=== PATIENT | male | born 1945 | race Caucasian/White ===

== ENCOUNTER 2016-08-30 06:02 | Outpatient (CLI) | payer MEDICARE, OTHER ==
[~2016-08-30] VITALS: Ht 172.7 cm; Wt 75.0 kg
--- NOTE | ~2016-08-30 | HEMODYNAMI ---
PATIENT:LAZARO BUTT MEDICAL RECORD: [id number] : 49 LOCATION:[facility] ADMISSION DATE: 08/30/16 Generatedon:08/30/20168:41 Patient name: LAZARO BUTT Patient #: [id number] SSN: D OB: 1945 Date of study: 08/30/2016 Page: Of Hemodynamic Procedure Report Patient Data Patient Demographics Procedure consent was obtained First Name: LAZARO Gender: Male Last Name: DAQUAN : 1945 Middle Initial: W Age: 70 year(s) Patient #: [id number] Race: Unknown Additional ID: [id number] Contact details [address]: [address] [place] [address] State: [place] City: [place] Zip code: [address] Past Medical History Allergies Allergen Reaction Date Comments Reported Other allergy 08/09/2015 Tetanus, Benadryl Codeine 08/09/2015 Penicillins 08/09/2015 Other allergy 08/30/2016 PCN, Tetanus, Benadryl, Codeine Admission Admission Data Admission Date: 08/30/2016 Admission Time: 6:02 Admit Source: Other Procedure Procedure Types Cath Procedure Diagnostic Procedure LHC LHC w/Coronaries w/Grafts PCI Procedure PTCA Initial Procedure Description Procedure Date Procedure Date: 08/30/2016 Procedure Start Time: 8:16 Procedure End Time: 8:37 Procedure Staff Name Function Adithya Nguyen MD Performing Physician Naila Sethi RN Nurse Juliano Clemens RT Monitor Caty Zazueta RT Scrub Reyes Jaramillo RT Monitor Procedure Data Cath Procedure Fluoroscopy Diagnostic fluoroscopy Total fluoroscopy Time: 4.7 time: 4.7 min min Diagnostic fluoroscopy Total fluoroscopy dose: 767 dose: 767 mGy mGy Contrast Material Contrast Material Type Amount (ml) Isovue 300 98 Entry Location Entry Primary Successful Side Size Upsize Upsize Entry Closure Succes sful Closure Location (Fr) 1 (Fr) 2 (Fr) Remarks Device Remarks Femoral Right 5 Fr 6 Fr Exoseal artery Short Diagnostic catheters Device Type Used For End Catheter Placement Cordis Infinity 5Fr JL Left Coronary 4.0 catheter Angiography Cordis Infinity 5Fr AR SVG Angiography MOD Catheter Cordis Infinity 5Fr LV Angiography Pigtail catheter Procedure Complications No complications Procedure Medications Medication Administration Route Dosage Oxygen NC 2 l/min Heparin Flush Bag added to field 2 bags (1000units/500ml NS) Lidocaine 2% added to field 20 Versed I.V. 1 mg Fentanyl I.V. 50 mcg Fentanyl I.V. 50 mcg Versed I.V. 1 mg Heparin Bolus I.V. 7500 units Plavix P.O. 600 mg Hemodynamics Rest Heart Rate: 52 (bpm) Pressure Samples Time Site Value (mmHg) Purpose Heart Use Rate(bpm) 8:24 LV 139/-4,16 EDP 69 Gradients Valve Time Site Site Mean SEP/DFP Peak To Heart Use 1 2 (mmHg) (sec/min) Peak Rate (mmHg) (bpm) Aortic 8:24 LV AO 69 Snapshots Pre Cath Intra NCS Post Cath Vital Signs Time Heart Resp SPO2 NIBP (mmHg) Rhythm Pain Sedation Rate (ipm) (%) Status Level (bpm) 8:00:59 51 16 100 146/77(119) SB 0 (11) 10(A) , No pain 8:05:15 52 16 98 149/80(123) SB 0 (11) 10(A) , No pain 8:09:35 56 16 96 136/71(114) SB 0 (11) 10(A) , No pain 8:13:49 55 15 96 126/74(105) SB 0 (11) 9(A) , No pain 8:18:01 51 19 97 127/68(103) SB 0 (11) 9(A) , No pain 8:22:06 68 16 96 146/87(128) NSR 0 (11) 9(A) , No pain 8:26:23 68 16 97 143/78(123) NSR 0 (11) 9(A) , No pain 8:30:38 68 16 97 122/74(102) NSR 0 (11) 9(A) , No pain 8:34:46 72 16 97 131/78(109) NSR 0 (11) 9(A) , No pain 8:36:04 73 16 97 127/78(104) NSR 0 (11) 10(A) , No pain Medications Time Medication Route Dose Verified Delivered Reason Notes Effectiveness by by 7:59:51 Oxygen NC 2 Adithya Naila Per physician l/min Michael Sethi RN 7:59:58 Heparin Flush added 2 Adithya Adithya used for Bag to bags Michael Nguyen MD procedure (1000units/500ml field NS) 8:00:05 Lidocaine 2% added 20ml Adithya Adithya used for to vial Michael Nguyen MD procedure field 8:09:25 Fentanyl I.V. 50 Adithya Naila for sedation mcg Michael Sethi RN 8:09:35 Versed I.V. 1 mg Adithya Naila for sedation Michael Sethi RN 8:13:14 Fentanyl I.V. 50 Adithya Naila for sedation mcg Michael Sethi RN 8:13:18 Versed I.V. 1 mg Adithya Naila for sedation Michael Sethi RN 8:28:42 Heparin Bolus I.V. 7500 Adithya Naila for dose units Michael Sethi RN anticoagulation verified with dr nguyen 8:36:21 Plavix P.O. 600 Adithya Naila for mg Michael Sethi RN antiplatelet therapy Procedure Log Time Note 7:30:02 Juliano Clemens RT(R) sent for patient. Start room use. 7:43:15 Admit Source: Other 7:44:00 Diagnostic Cath status Elective 7:44:03 Time tracking: Regular hours 7:44:07 Plan of Care:Hemodynamics will remain stable., Cardiac rhythm will remain stable., Comfort level will be maintained., Respiratory function will remain adequate., Patient/ family verbilizes understanding of procedure., Procedure tolerated without complication., Recovers from procedure without complications.. 7:54:46 Patient received from Outpatients to CCL 1 Alert and oriented. Tansferred to table in Supine position. 7:54:47 Warm blankets applied, and lauro hugger turned on for patient comfort. 7:54:47 Correct patient and procedure confirmed by team. 7:54:49 Signed procedure consent form obtained from patient. 7:54:50 ECG and BP/O2 sat monitors applied to patient. 7:59:42 Vital chart was started 7:59:51 Oxygen 2 l/min NC was given by Naial Jossie RN; Per physician; 7:59:58 Heparin Flush Bag (1000units/500ml NS) 2 bags added to field was given by Adithya Nguyen MD; used for procedure; 8:00:05 Lidocaine 2% 20ml vial added to field was given by Adithya Nguyen MD; used for procedure; 8:05:54 Baseline sample Acquired. 8:05:57 Rhythm: sinus bradycardia 8:06:06 Full Disclosure recording started 8:07:11 H&P Date Dictated: 08/30/2016 New H&P dictated by physician.. 8:07:14 Pre-procedure instructions explained to patient. 8:07:14 Pre-op teaching completed and patient verbalized understanding. 8:07:15 Family in waiting room. 8:07:17 Patient NPO since Midnight. 8:07:55 Patient allergic to Other allergy PCN, Tetanus, Benadryl, Codeine 8:08:03 Is the patient allergic to Iodine/contrast media? No. 8:08:09 Is patient on blood thinner?No 8:08:12 ACC The patient was administered the following blood thiners within the last 24 hours: None 8:08:31 Patient diabetic? Yes. 8:08:33 If diabetic: On Metformin? No 8:08:36 Previous problem with sedation/anesthesia? No ? 8:08:37 Snore? Yes 8:08:38 Sleep apnea? No 8:08:39 Deviated septum? No 8:08:39 Opens mouth fully? Yes 8:08:40 Sticks out tongue? Yes 8:08:42 Airway obstruction? No ? 8:08:45 Dentures? Yes IN 8:08:51 Pre procedure: right dorsailis pedis pulse 1+ Palpable, but thready & weak; easily obliterated 8:08:55 Patient pain scale 0/10 ?. 8:08:59 IV patent on arrival in left forearm with 0.9% NaCl at [facility]. 8:09:02 Lab results completed and on chart. 8:09:09 Right groin area was prepped with chlora-prep and draped in sterile fashion 8:09:10 Alarms reviewed by RNicole N. 8:09:10 Sharps counted by scrub and verified by R.N. 8:09:13 --------ALL STOP TIME OUT------ 8:09:13 Final Timeout: patient, procedure, and site verified with staff and physician. All members of the team are in agreement. 8:09:15 Right groin site verified by team. 8::18 Physical assessment completed. ASA score P 2 - A patient with mild systemic disease as per Adtihya Nguyen MD. 8::22 Sedation plan: IV Moderate Sedation Versed, Fentanyl 8:09:25 Fentanyl 50 mcg I.V. was given by Naila Sethi RN; for sedation; 8:09:35 Versed 1 mg I.V. was given by Naila Sethi RN; for sedation; 8:09:56 Tegaderm 4 x 4 opened to sterile field. 8:09:57 Acist Manifold opened to sterile field. 8:09:58 Acist Hand Control opened to sterile field. 8:10:00 Acist Syringe opened to sterile field. 8:10:00 Bag Decanter opened to sterile field. 8:10:01 Cardinal Cath Pack opened to sterile field. 8:10:01 Terumo 5Fr [place] Sheath opened to sterile field. 8:10:02 St Tereso 260cm J .035 wire opened to sterile field. 8:13:14 Fentanyl 50 mcg I.V. was given by Naila Sethi RN; for sedation; 8:13:18 Versed 1 mg I.V. was given by Naila Sethi RN; for sedation; 8:13:56 Zero performed for pressure channel P1 8:14:33 ACC Patient presents with Stable Angina CCS Anginal Class 2--Slight limitation of ordinary activity. 8:16:02 Procedure started. 8:16:11 Local anesthetic to right femoral artery with Lidocaine 2% by Adithya Nguyen MD.INITIAL ACCESS ONLY 8:16:18 A 5 Fr sheath was inserted into the Right Femoral artery 8:17:58 A Cordis Infinity 5Fr JL 4.0 catheter was advanced over the wire and used for Left Coronary Angiography. 8:18:07 LCA angiography performed. 8:19:17 Catheter removed. 8:19:45 A Cordis Infinity 5Fr AR MOD Catheter was advanced over the wire and used for SVG Angiography. 8:20:22 SVG to RCA angiography performed. 8:22:18 SVG to LAD angiography performed. 8:23:51 A Cordis Infinity 5Fr Pigtail catheter was advanced over the wire and used for LV Angiography. 8:24:04 LV gram done using CARBAJAL 8:24:06 LV hemodynamics recorded. 8:24:10 Injector settings: Ml/sec: 5, Volume: 15, 8:24:17 EF : 50 % 8:24:30 Catheter removed. 8:25:55 Merit BasixCompak Inflation Kit opened to sterile field. 8:25:56 High Pressure Extension Tubing (Michael) opened to sterile field. 8:26:03 Cordis 6FR XBLAD 3.5 guide catheter opened to sterile field. 8:26:03 Bah BMW [place] 2 J-tip 300cm 0.014 guide wir opened to sterile field. 8:26:09 Solyndraumo 6Fr [place] Sheath opened to sterile field. 8:26:25 Sheath upsized to a 6 Fr Short. 8:26:45 ACC PCI Site: [facility] has 80% stenosis. 8:26:47 ACC Pre-intervention ALFONZO Flow is 3. 8:26:54 6 Fr XBLAD 3.5 guide catheter was inserted over the wire 8:27:16 BMW 2 wire advanced. 8:28:42 Heparin Bolus 7500 units I.V. was given by Naila Sethi RN; for anticoagulation; dose verified with dr nguyen 8:31:21 Inflation number: 1 A [place] Sci Charles Mix 2.5 X 15 balloon was prepped and advanced across the Mid CX, then inflated to 14 ORION for 0:12 (min:sec). 8:31:51 Inflation number: 2 The [place] Sci Charles Mix 2.5 X 15 balloon was reinflated across the Mid CX, to 14 ORION for 0:11 (min:sec). 8:32:25 Inflation number: 3 The [place] Sci Charles Mix 2.5 X 15 balloon was reinflated across the Mid CX, to 14 ORION for 0:19 (min:sec). 8:33:29 Balloon removed over the wire. 8:33:30 Wire removed. 8:33:30 Guide catheter removed. 8:33:54 Contrast amount:Isovue 300 98ml. 8:34:10 Cordis 6Fr Exoseal opened to sterile field. 8:34:44 Sheath removed intact; hemostasis achieved with Exoseal to the Right Femoral artery. 8:34:46 Procedure ended.(Physican Out) 8:34:54 Fluoroscopy time 04.70 minutes. 8:34:57 Flurop Dose total: 767 8:34:57 Fluoroscopy dose: 767 mGy 8:34:59 Sharps counted by scrub and verified by R.N. 8:34:59 Insertion/operative site no bleeding no hematoma. 8:35:02 Post-op/insertion site Right Femoral artery dressed using a 4 x 4 and Tegaderm. 8:35:16 Procedure type changed to Cath procedure, Diagnostic procedure, LHC, LHC w/Coronaries w/Grafts, PCI procedure, PTCA Initial 8:35:46 Post right femoral artery:stable 8:35:47 Post Procedure Pulses reassessed and unchanged 8:35:50 Post procedure rhythm: sinus rhythm 8:35:52 Post procedure instruction explained to patient.Patient verbalizes understanding. 8:36:21 Plavix 600 mg P.O. was given by Naila Sethi RN; for antiplatelet therapy; 8:36:57 Procedure and supply charges have been captured, reviewed, submitted and are correct. 8:37:00 Procedure Complication : No complications 8:37:33 Vital chart was stopped 8:37:34 See physician's report for complete and final results. 8:37:36 Report given to Post Procedure Room. 8:37:40 Patient transfered to Post Procedure Room with Stretcher. 8:37:42 Procedure ended. 8:37:42 Full Disclosure recording stopped 8:37:57 ACC-PCI Only Patient was given prescriptions, or instructed by Adithya Nguyen MD to start/continue the following medications upon discharge: Plavix 8:37:58 End room use (Document Last) Intervention Summary Intervention Notes Time ActionType Lesion and Equipment Action# Pressure Duration Attributes Used 8:31:21 Inflate Mid CX [place] 1 14 00:12 balloon Sci Charles Mix 2.5 X 15 balloon 8:31:51 Reinflate Mid CX [place] 2 14 00:11 balloon Sci [place] Mix 2.5 X 15 balloon 8:32:25 Reinflate Mid CX [place] 3 14 00:19 balloon Sci [place] Mix 2.5 X 15 balloon Device Usage Item Name Manufacture Quantity Catalog Number Hospital Part Current Mini mal Lot# / Charge Number Stock Stock Serial# Code Tegaderm 4 3M 1 1626 [id number] [id number] 480916 5 x 4 Acist Acist 1 90303 004774 990372 375208 5 Manifold Medical Systems Inc Acist Hand Acist 1 95621 780949 417965 929990 5 Control Medical Systems Inc Acist Acist 1 00121 591489 174295 294400 20 Syringe Medical Systems Inc Bag Microtek 1 2002S 990652 17599 351325 5 Decanter Medical Inc. Cardinal Cardinal [address] 420396 50016 815231 5 Cath Pack Health Terumo 5Fr Terumo 1 [id number] 694928 108737 175494 [address] St Tereso 1 732965 120822 883515 199151 30 260cm J .035 wire Cordis Cardinal 1 [id number] 193957 041134 957340 10 Bracket Computing 5Fr JL 4.0 catheter Cordis Cardinal 1 [id number] 616730 534498 727038 15 Bracket Computing 5Fr AR MOD Catheter Cordis Cardinal 1 [id number] 116406 730333 342324 5 Bracket Computing 5Fr Pigtail catheter Merit Merit 1 XV5536 039935 908626 036209 15 Next University Medical Inflation Kit High Merit 1 [id number] 871246 23816 052890 10 Pressure Medical Extension Tubing (Nguyen) Cordis 6FR Cardinal 1 36954604 524580 962014 775059 10 XBLAD 3.5 Health guide catheter Bah BMW Bah 1 [id number] 216268 473899 244837 5 [place] 2 Vascular J-tip 300cm 0.014 guide wir Terumo 6Fr Terumo 1 AOD301 789894 614607 093519 40 [place] Sheath [place] Sci [place] 1 [id number] 653395 645969 225132 1 [id number] Antidot 2.5 X 15 balloon Cordis 6Fr Cardinal 1 EX600 496310 699787 582135 10 [employer] Signature Audit [place] Stage Time Signature Unsigned Intra-Procedure 08/30/2016 Reyes Jaramillo 8:41:19 AM RT(R) Signatures Monitor : Juliano Clemens RT Signature : Date : Time : Monitor : Reyes Suit RT Signature : Date : Time : [address] [place] [address]
[~2016-08-30 06:02] MED LIST: ACTOS30 MG PO; ASPIRIN81 MG PO; COREG 3.1253.125 MG PO; DIABETA5 MG PO; DUONEB 2.5-0.5 M3 ML UPD; FLOMAX0.4 MG PO; HUMALOG 30100 UNITS/ SC; INSTA-GLUCOSE31 GM PO; JANUMET XR 1001 EACH PO; LAMISIL250 MG PO; LANTUS INSULIN10 ML SC; LEVEMIR100 U/M1; LISINOPRIL2.5 MG PO; LOPRESSOR25 MG PO; MEDROL DOSE PACK4 MG PO; MELATONIN 3 MG1 TAB PO; PLAVIX75 MG; PROAIR HFA8.5 GM INH; RESTORIL15 MG PO; TUDORZA PRESSAIR INH; ZOCOR40 MG PO; ZPAK PO
[2016-08-30 07:07] LABS: BASOPHILS 0.7 % (0.0-2.0); EOSINOPHILS 3.7 % (0-7); HEMATOCRIT 37.6 % (42.0-54.0); HEMOGLOBIN 12.4 g/dL (13.5-17.5); IMMATURE GRANULOCYTES 0.5 % (0-5); MCH 30.5 pg (26.0-34.0); MCV 92.4 fL (80.0-100.0); MEAN PLATELET VOLUME 10.1 fL (7.4-10.4); MONOCYTES 10.4 % (2-11); NEUTROPHILS 66.7 % (40-80); PLATELET COUNT 216 10x3/uL (130-400); RBC 4.07 10x6/uL (4.20-6.10); RDW 12.5 % (11.5-14.5); WBC 8.7 10x3/uL (4.8-10.8)
[2016-08-30 07:15] LABS: ANION GAP 9.6 mmol/L (8-16); CALCIUM 8.3 mg/dL (8.5-10.1); CARBON DIOXIDE 27.9 mmol/L (21.0-32.0); CREATININE - SERUM 1.1 mg/dL (0.6-1.3); POTASSIUM - SERUM 4.5 mmol/L (3.5-5.1)
[2016-08-30 07:39] VITALS: BP 124/70; Ht 172.7 cm; Wt 75.0 kg
--- NOTE | 2016-08-30 07:42 | NUR ---
0740-REPORTED PRE-PROCEDURE BLOOD SUGAR RESULTS TO RUBEN IN CURRICULUM ASSISTANT PRINCIPAL, STATES HE WILL INFORM DR. RIVAS & GABRIEL IN CURRICULUM ASSISTANT PRINCIPAL.
[2016-08-30] MEDS ORDERED: PLAVIX75 MG PO (08:57)
--- NOTE | 2016-08-30 09:08 | NUR ---
0900 LYING FLAT, RESTING WITH EYES CLOSED. NC 2L IN PLACE WHILE SLEEPING. SBRADY RATE 54 W NO C/O CHEST PAIN, PULSES PALP X 4. R GROIN 6F EXOSEAL C/D/I WITH NO HEMATOMA OR BLEEDING.
--- NOTE | 2016-08-30 09:31 | NUR ---
0930 CONTINUES TO SLEEP BUT AWAKENS TO VERBAL STIMULI. NC 2L IN PLACE. VITALS ALL WNL. R GROIN 6F EXOSEAL C/D/I WITH NO HEMATOMA OR BLEEDING.
--- NOTE | 2016-08-30 10:00 | NUR ---
1000 CONTINUES TO SLEEP, VITALS ALL WNL. R GROIN 6F EXOSEAL C/D/I WITH NO HEMATOMA OR BLEEDING. DAUGHTER AT BEDSIDE.
--- NOTE | 2016-08-30 10:40 | NUR ---
PATIENT C/O PAIN IN BACK OF LEFT SHOULDER RATED 4/10. NO EKG CHANGES. ROB NOTIFIED. T/O FOR NORCO 10/325 PO NOW FOR PAIN. NORCO 10/325MG PO GIVEN ORDERED. WILL MONITOR FOR EFFECTIVENESS.
--- NOTE | 2016-08-30 10:53 | NUR ---
VOIDED VIA URINAL 200CC
--- NOTE | 2016-08-30 11:53 | NUR ---
6 FR EXOSEAL R/GROIN CDI NO BLEEDING NO HEMATOMA NOTED VSS WITH CHEST PAIN DENIED WILL MONITOR
--- NOTE | 2016-08-30 12:44 | NUR ---
1230 ELEVATED HOB, EATING TURKEY TRAY. WILL MONITOR R GROIN FOR BLEEDING. VITALS ALL WNL.
--- NOTE | 2016-08-30 12:44 | NUR ---
1244 PIV REMOVED FROM LEFT FOREARM WITH BANDAID APPLIED. R GROIN REMAINS C/D/I WITH NO HEMATOMA OR BLEEDING.
--- NOTE | 2016-08-30 13:08 | NUR ---
ASSIST UP TO GET DRESSED FOR DISCHARGE WITH CHEST PAIN DENIED. 6 FR EXOSEAL R/GROIN CDI NO BLEEDING NO HEMATOMA NOTED. DISCHARGE INSTRUCTIONS GONE OVER VERBAL AND WRITTEN WITH PATIENT AND FAMILY ALL VERBALIZED UNDERSTANDING LEFT VIA WC TO [facility] FOR FAMILY TO TRANSPORT HOME
--- NOTE | 2016-09-03 15:45 | OP ---
PATIENT NAME: LAZARO BUTT MEDICAL RECORD: [id number] :49 LOCATION:D.CAT ADMISSION DATE: SURGEON: BLUE RIVAS M.D. DATE OF OPERATION: 08/30/2016 REFERRING PHYSICIAN: Pako Anderson MD PROCEDURES PERFORMED: 1. Selective coronary angiography. 2. Left heart catheterization with ventriculogram. 3. Bypass angiography. 4. PTCA of the circumflex artery. INDICATION: A 70-year-old gentleman presents with abnormal stress test revealing inferior lateral wall ischemia. EQUIPMENT USED: A 5-Stateless JL4, AR modified catheter, and pigtail catheter. INTERVENTION: A 6-Stateless XB 3.5 guide, BMW guide wire, 2.5 x 15 mm Licking balloon. TECHNIQUE: A 5-Stateless sheath was inserted in retrograde fashion in the right common femoral artery. Next, selective coronary angiography was performed using standard 5-Stateless JL4 and Mark right. Left heart catheterization performed using pigtail catheter. Bypass angiography was performed using the AR modified catheter. CORONARY ANATOMY: 1. Left main: Left main trunk is moderate in caliber. It gives rise to the LAD and circumflex. It is widely patent. 2. LAD: This vessel is 100% occluded in the proximal segment. 3. Circumflex: This vessel is large in caliber. It is the dominant vessel. The proximal vessel has been stented. There is the discrete 80% to 90% in-stent restenosis seen in the proximal aspect of the stent. 4. Right coronary: This vessel is 100% occluded just beyond the origin. 5. Saphenous vein graft to the PDA. This graft is widely patent throughout its course. It has been stented in the mid body. The stent is widely patent. There is no evidence of restenosis. 6. Saphenous vein graft to LAD. This graft demonstrates some mild irregularity in the proximal body of the graft, but nothing worse than 20%. Beyond the anastomosis, the vessel is of good caliber and has no obstruction. 7. Left ventricle: Left ventricle is normal in size. No wall motion abnormalities was seen. Estimated ejection fraction is lower limits of normal around 50%. DESCRIPTION OF INTERVENTION: A 6-Stateless sheath was inserted in retrograde fashion in the right common femoral artery. Next, 100 units per kilogram of heparin was infused. A 6-Stateless XB 3.5 guide was advanced and engaged in the left main coronary artery. Next, a BMW guide wire was placed in the distal circumflex. A 2.5 x 15 mm [place] balloon was advanced. There are several inflations were performed across the in-stent restenosis at 14 atmospheres. Injections revealed a less than 10% residual stenosis with brisk flow to the circumflex. At this point, the wire and guide were removed. IMPRESSION: Successful percutaneous transluminal coronary angioplasty of the OPERATIVE REPORT [id number] LAZARO BUTT circumflex for in-stent restenosis. TRANSINT:[id number] Voice Confirmation ID: [id number] DOCUMENT ID: [id number] BLUE RIVAS M.D. at 1545 CC: [id number] DICTATION DATE: 08/30/16 0843 BUS ANALYST: 08/30/16 0905 [facility] CLI 08/30/16 [address] [place] [address]
--- NOTE | 2016-09-03 15:45 | HP ---
PATIENT: LAZARO BUTT MEDICAL RECORD: [id number] ACCOUNT: [id number] LOCATION:SOM : 49 ADMISSION DATE: 08/30/16 HISTORY AND PHYSICAL EXAMINATION HISTORY OF PRESENT ILLNESS: Lazaro is a pleasant 70-year-old gentleman who has undergone bypass grafting in the past. He underwent stent of the circumflex about a year ago. He recently presented for Cardiolite stress test for surveillance, as this is 1 year from stenting. This revealed inferior and lateral wall ischemia. He was subsequently referred for cardiac catheterization. PAST MEDICAL HISTORY: 1. Coronary artery disease. 2. Hypertension. 3. Diabetes mellitus. 4. Hyperlipidemia. MEDICATIONS: Carvedilol 3.125 mg twice daily, Lipitor 40 mg daily, aspirin p.o. every day, Humalog insulin as directed, lisinopril 2.5 mg daily. HABITS: He does not smoke tobacco. FAMILY HISTORY: Noncontributory. PHYSICAL EXAMINATION: VITAL SIGNS: Blood pressure is 120/70, pulse is 68. NECK: No JVD or bruit. CHEST: Clear to auscultation bilaterally. No wheezes or rales. CARDIAC: Regular rate and rhythm. No S4, no S3, and no murmur. ABDOMEN: Soft and nontender. No masses and no bruits. EXTREMITIES: Pulses are 2+ bilaterally. No edema. IMPRESSION: Coronary artery disease. His Cardiolite stress test revealed inferior lateral wall ischemia. He underwent stent of circumflex, about a year ago. I suspect he may have developed restenosis. RECOMMENDATIONS: We will proceed with cardiac catheterization. TRANSINT:[id number] Voice Confirmation ID: [id number] DOCUMENT ID: [id number] BLUE RIVAS M.D. at 1545 CC: [id number] DICTATION DATE: 08/30/16 0844 SPAGHETTI PRESS HELPER: 08/30/16 0912 [facility] CLI 08/30/[address] [address]
== END 2016-08-30 13:20 | disposition home or self-care (01) ==
LOC: D.CATH 06:02
PROVIDERS: Internal Medicine Cardiovascular Disease
DX: I25.10 Atherosclerotic heart disease of native coronary artery without angina pectoris (principal); T82.855A Stenosis of coronary artery stent, initial encounter; Z95.1 Presence of aortocoronary bypass graft; I10 Essential (primary) hypertension; E11.9 Type 2 diabetes mellitus without complications; E78.5 Hyperlipidemia, unspecified; Z79.82 Long term (current) use of aspirin; Z79.4 Long term (current) use of insulin; Z79.899 Other long term (current) drug therapy

== ENCOUNTER → 2017-05-31 12:11 | Outpatient (CLI) | payer MEDICARE, OTHER ==
[2016-08-30 07:39] VITALS: BMI 25.1
[~2017-05-31 12:11] MED LIST changes: +PLAVIX75 MG PO
== END | disposition home or self-care (01) ==
LOC: D.MRI 12:11
DX: M54.12 Radiculopathy, cervical region (principal)

== ENCOUNTER 2017-08-11 09:51 | Emergency (ER) | payer MEDICARE, OTHER ==
[2016-08-30 07:39] VITALS: BMI 25.1
== END 2017-08-11 11:15 | disposition home or self-care (01) ==
LOC: D.ER 09:51
DX: S02.609A Fracture of mandible, unspecified, initial encounter for closed fracture (principal); W19.XXXA Unspecified fall, initial encounter; Y93.89 Activity, other specified; Y92.019 Unspecified place in single-family (private) house as the place of occurrence of the external cause; E11.9 Type 2 diabetes mellitus without complications; Z79.4 Long term (current) use of insulin

== ENCOUNTER → 2018-04-03 13:29 | Outpatient (CLI) | payer MEDICARE, OTHER ==
[2016-08-30 07:39] VITALS: BMI 25.1
[~2018-04-03 13:29] MED LIST changes: +BAYER CHEWABLE81 MG PO; +IPRAT-ALBUT 0.5-3 ML UPD; +VIBRAMYCIN 100100 MG PO
== END | disposition home or self-care (01) ==
LOC: D.CT 13:29
DX: R05 Cough (principal)

== ENCOUNTER 2018-04-03 19:16 | Emergency (ER) | payer MEDICARE, OTHER ==
[~2018-04-03] VITALS: Ht 172.7 cm; Wt 70.5 kg
[~2018-04-03 19:16] MED LIST changes: -BAYER CHEWABLE81 MG PO; -IPRAT-ALBUT 0.5-3 ML UPD; -VIBRAMYCIN 100100 MG PO
[2018-04-03 19:25] VITALS: Ht 172.7 cm; Wt 70.5 kg
[2018-04-03] MEDS ORDERED: BAYER CHEWABLE81 MG PO (19:26)
[2018-04-03 19:43] LABS: BASOPHILS 0.5 % (0-2); EOSINOPHILS 13.4 % (0-7); HEMATOCRIT 40.5 % (42.0-54.0); HEMOGLOBIN 13.7 g/dL (13.5-17.5); IMMATURE GRANULOCYTES 0.3 % (0-5); LYMPHOCYTES 8.7 % (15-50); MCH 30.8 pg (26.0-34.0); MCHC 33.8 g/dL (31.0-37.0); MONOCYTES 7.9 % (2-11); NEUTROPHILS 69.2 % (40-80); PLATELET COUNT 212 10x3/uL (130-400); RBC 4.45 10x6/uL (4.20-6.10); RDW 13.5 % (11.5-14.5); WBC 16.3 10x3/uL (4.8-10.8)
[2018-04-03 19:55] LABS: ALBUMIN 4.1 g/dL (3.4-5.0); ALKALINE PHOSPHATASE 104 U/L (46-116); ALT (SGPT) 60 U/L (10-68); BILIRUBIN - TOTAL 0.87 mg/dL (0.2-1.3); CALC OSMOLALITY 291 mosm/kg (275-300); CALCIUM 8.5 mg/dL (8.5-10.1); CARBON DIOXIDE 28.8 mmol/L (21.0-32.0); CHLORIDE - SERUM 103 mmol/L (98-107); CREATININE - SERUM 1.5 mg/dL (0.6-1.3); GLUCOSE 270 mg/dL (74-106); POTASSIUM - SERUM 4.9 mmol/L (3.5-5.1); PROTEIN - SERUM 6.9 g/dL (6.4-8.2); SODIUM 137 mmol/L (136-145); UREA NITROGEN 34 mg/dL (7-18); eGFR NON AFRICAN AMERICAN 49 mL/min (90-120)
[2018-04-03 20:06] LABS: CKMB 9.7 U/L (0.0-3.6); CREATINE KINASE 755 UL (21-232)
[2018-04-03 20:07] LABS: TROPONIN-I < 0.017 ng/mL (0.000-0.060)
[2018-04-03] MEDS ORDERED: IPRAT-ALBUT 0.5-3 ML UPD (23:02)
[2018-04-03] MEDS ORDERED: VIBRAMYCIN 100100 MG PO (23:02)
[2018-04-03 23:25] VITALS: BP 129/82
== END 2018-04-03 23:25 | disposition home or self-care (01) ==
LOC: D.ER 19:16
PROVIDERS: Family Medicine
DX: R06.00 Dyspnea, unspecified (principal); Z86.79 Personal history of other diseases of the circulatory system; R05 Cough; J45.909 Unspecified asthma, uncomplicated; E11.9 Type 2 diabetes mellitus without complications; R00.0 Tachycardia, unspecified; I45.10 Unspecified right bundle-branch block

== ENCOUNTER → 2018-11-05 07:49 | Outpatient (CLI) | payer MEDICARE, BC ==
[2018-04-03 19:25] VITALS: BMI 23.6
[~2018-11-05 07:49] MED LIST changes: +BAYER CHEWABLE81 MG PO; +IPRAT-ALBUT 0.5-3 ML UPD; +VIBRAMYCIN 100100 MG PO
== END | disposition home or self-care (01) ==
LOC: D.HCCARDIO 07:49
PROVIDERS: ATTEND Internal Medicine Cardiovascular Disease
DX: I25.810 Atherosclerosis of coronary artery bypass graft(s) without angina pectoris (principal)

== ENCOUNTER 2018-11-13 05:54 | Outpatient (CLI) | payer MEDICARE, BC ==
[~2018-11-13] VITALS: Ht 172.7 cm; Wt 70.5 kg
--- NOTE | ~2018-11-13 | HEMODYNAMI ---
PATIENT:LAZARO BUTT MEDICAL RECORD: [id number] : 49 LOCATION:[facility] ADMISSION DATE: 11/13/18 Generatedon:11/13/20188:19 Patient name: LAZARO BUTT Patient #: [id number] SSN: D OB: 1945 Date of study: 11/13/2018 Page: Of Hemodynamic Procedure Report Patient Data Patient Demographics Procedure consent was obtained First Name: LAZARO Gender: Male Last Name: DAQUAN : 1945 Middle Initial: W Age: 72 year(s) Patient #: [id number] Race: Unknown Additional ID: [id number] Contact details Address: [address] [place] [address] State: [place] City: [place] Zip code: [address] Past Medical History Allergies Allergen Reaction Date Comments Reported Other allergy 08/09/2015 Tetanus, Benadryl Codeine 08/09/2015 Penicillins 08/09/2015 Other allergy 08/30/2016 PCN, Tetanus, Benadryl, Codeine Other allergy 11/13/2018 BENADRYL, CODEINE, PCN, TETANUS VACCINES AND TOXOID Admission Admission Data Admission Date: 11/13/2018 Admission Time: 5:54 Lab Results Lab Result Date: 11/13/2018 Lab Result Time: 0:00 Biochemistry Name Units Result Min Max BUN mg/dl 24 --(----)-* 7 18 Creatinine mg/dl 1.1 --(--*-)-- 0.6 1.3 CBC Name Units Result Min Max Hematocrit % 41 -*(----)-- 42 54 Hemoglobin g/dl 13.8 --(*---)-- 13.5 17.5 Procedure Procedure Types Cath Procedure Diagnostic Procedure [facility] w/Coronaries w/Grafts PCI Procedure PTCA PTCA Initial Procedure Description Procedure Date Procedure Date: 11/13/2018 Procedure Start Time: 7:55 Procedure End Time: 8:15 Procedure Staff Name Function Adithya Rodriguez MD Performing Physician Lashanda Dickerson RT Scrub Stacy Matamoros RT Monitor Nory Veloz RN Nurse Kg Soria RN Genetic Supervisor Procedure Data Cath Procedure Fluoroscopy Diagnostic fluoroscopy Total fluoroscopy Time: 4 time: 4 min min Diagnostic fluoroscopy Total fluoroscopy dose: 600 dose: 600 mGy mGy Contrast Material Contrast Material Type Amount (ml) Isovue 300 97 Entry Location Entry Primary Successful Side Size Upsize Upsize Entry Closure Succes sful Closure Location (Fr) 1 (Fr) 2 (Fr) Remarks Device Remarks Femoral Right 5 Fr 6 Fr Exoseal artery Short Estimated blood loss: 10 ml Diagnostic catheters Device Type Used For End Catheter Placement MULTIPACK JL 4.0 5Fr Procedure catheter DIAGNOSTIC AR MOD 5Fr Procedure Catheter ([id number]) MULTIPACK Pigtail 5 Fr Procedure catheter Procedure Complications No complications Procedure Medications Medication Administration Route Dosage 0.9% NaCl I.V. 100 ml/hr Oxygen etCO2 Nasal cannula 2 l/min Lidocaine 2% added to field 20 Heparin Flush Bag added to field 2 bags (1000units/500ml NS) Versed I.V. 2 mg Fentanyl I.V. 50 mcg Versed I.V. 2 mg Fentanyl I.V. 50 mcg Heparin Bolus I.V. 7000 units Plavix P.O. 600 mg Hemodynamics Rest Heart Rate: 71 (bpm) Pressure Samples Time Site Value (mmHg) Purpose Heart Use Rate(bpm) 8:03 LV 133/-2,11 Snapshot 78 8:03 AO 126/57(87) Pullback 78 8:03 LV 119/1,10 Pullback 78 Gradients Valve Time Site 1 Site 2 Mean SEP/DFP Peak To Heart Use (mmHg) (sec/min) Peak Rate (mmHg) (bpm) Aortic 8:03 LV AO 0 9 0 78 119/1,10 126/57(87) Calculations Valve P-P Mean Valve Index Valve Source Name Gradient Area Flow (cm2) Aortic 0 0 0 0 Snapshots Pre Cath Intra NCS Post Cath Vital Signs Time Heart Resp SPO2 etCO2 NIBP (mmHg) Rhythm Pain Sedation Rate (ipm) (%) (mmHg) Status Level (bpm) 7:41:23 61 14 97 32.3 140/82(122) NSR 0 (11) 10(A) , No pain 7:45:45 63 13 97 31.5 143/81(104) NSR 0 (11) 10(A) , No pain 7:50:05 62 11 97 36 127/83(101) NSR 0 (11) 10(A) , No pain 7:54:23 64 12 96 21 132/76(111) NSR 0 (11) 10(A) , No pain 7:58:43 68 10 97 35.3 132/75(113) NSR 0 (11) 9(A) , No pain 8:02:59 76 10 97 33.8 138/79(109) NSR 0 (11) 9(A) , No pain 8:07:09 75 14 97 41.3 128/77(107) NSR 0 (11) 9(A) , No pain 8:11:23 81 16 98 37.5 133/76(109) NSR 0 (11) 10(A) , No pain 8:15:37 82 8 97 16.5 125/77(100) NSR 0 (11) 10(A) , No pain Medications Time Medication Route Dose Verified Delivered Reason Notes Effectiveness by by 7:44:42 0.9% NaCl I.V. 100 Adithya Nory used for ml/hr Michael Veloz integration engineer 7:44:48 Oxygen etCO2 2 Adithya Nory used for Nasal l/min Michael Veloz procedure cannula RN 7:44:53 Lidocaine 2% added 20ml Adithya Adithya for local to vial Michael Rodriguez MD anesthetic field 7:44:58 Heparin Flush added 2 Adithya Adithya used for Bag to bags Michael Rodriguez MD procedure (1000units/500ml field NS) 7:51:08 Fentanyl I.V. 50 Adithya Nory for sedation mcg Michael Veloz RN 7:51:57 Versed I.V. 2 mg Adithya Nory for sedation Michael Veloz RN 7:56:19 Versed I.V. 2 mg Adithya Nory for sedation Michael Veloz RN 7:56:28 Fentanyl I.V. 50 Adithya Nory for sedation mcg Michael Veloz RN 8:05:27 Heparin Bolus I.V. 7000 Adithya Nory for verifi ed units Michael Veloz anticoagulation with Dr. VINCE Rodriguez 8:13:32 Plavix P.O. 600 Adithya Nory for mg Michael Veloz antiplatelet RN therapy Procedure Log Time Note 7:29:43 Kg Soria RN sent for patient. Start room use. 7:29:43 Time tracking: Regular hours (M-F 7:00 - 5:00) 7:29:47 Plan of Care:Hemodynamics will remain stable., Cardiac rhythm will remain stable., Comfort level will be maintained., Respiratory function will remain adequate., Patient/ family verbilizes understanding of procedure., Procedure tolerated without complication., Recovers from procedure without complications.. 7:29:56 Procedure type changed to Cath procedure, Diagnostic procedure, LHC, LHC w/Coronaries w/Grafts, PCI procedure, PTCA, PTCA Initial 7:31:44 Signed procedure consent form obtained from patient. 7:31:58 H&P Date Dictated: 11/08/2018 Within 30 days and on chart., H&P Addendum completed by physician on day of procedure. (MUST COMPLETE FOR ALL OUTPATIENTS). 7:32:30 Patient allergic to Other allergyBENADRYL, CODEINE, PCN, TETANUS VACCINES AND TOXOID 7:35:25 Patient received from Pre/Post Procedure Room to CCL 1 Alert and oriented. Tansferred to table in Supine position. 7:35:26 Warm blankets applied, and lauro hugger turned on for patient comfort. 7:35:26 Correct patient and procedure confirmed by team. 7:35:27 ECG and BP/O2 sat monitors applied to patient. 7:35:28 Full Disclosure recording started 7:40:11 Vital chart was started 7:44:42 0.9% NaCl 100 ml/hr I.V. was administered by Nory Veloz RN; used for procedure; 7:44:48 Oxygen 2 l/min etCO2 Nasal cannula was administered by Nory Veloz RN; used for procedure; 7:44:53 Lidocaine 2% 20ml vial added to field was administered by Adithya Rodriguez MD; for local anesthetic; 7:44:58 Heparin Flush Bag (1000units/500ml NS) 2 bags added to field was administered by Adithya Rodriguez MD; used for procedure; 7:44:58 Pre-procedure instructions explained to patient. 7:44:59 Pre-op teaching completed and patient verbalized understanding. 7:45:00 Family in patients room. 7:45:02 Patient NPO since Midnight. 7:45:08 Is patient on blood thinner?No 7:45:09 Patient diabetic? Yes. 7:45:10 If diabetic: On Metformin? No 7:45:25 HELD NINA 2 DAYS 7:45:32 Previous problem with sedation/anesthesia? No ? 7:45:33 Snore? Yes 7:45:34 Sleep apnea? No 7:45:36 Deviated septum? No 7:45:37 Opens mouth fully? Yes 7:45:38 Sticks out tongue? Yes 7:45:40 Airway obstruction? No ? 7:45:48 Dentures? Yes IN TIGHT 7:45:51 Pre procedure: right dorsailis pedis pulse 1+ Palpable, but thready & weak; easily obliterated 7:45:56 IV patent on arrival in left hand with 0.9% NaCl at [facility]. 7:45:59 Lab results completed and on chart. 7:46:24 Lab Result : BUN 24 mg/dl 7:46:24 Lab Result : Creatinine 1.1 mg/dl 7:46:24 Lab Result : Hemoglobin 13.8 g/dl 7:46:24 Lab Result : Hematocrit 41 % 7:46:29 Right groin area was prepped with chlora-prep and draped in sterile fashion 7:46:29 Alarms reviewed by R. N. 7:46:30 Sharps counted by scrub and verified by R.N. 7:46:33 Use device set Femoral Dx 7:46:34 ACIST Syringe (69766) opened to sterile field. 7:46:34 Bag Decanter () opened to sterile field. 7:46:36 ACIST Manifold (94775) opened to sterile field. 7:46:37 ACIST Hand Control (27739) opened to sterile field. 7:46:37 Tegaderm 4 x 4 (1626W) opened to sterile field. 7:46:39 Medline Cath Pack ([id number]) opened to sterile field. 7:46:40 DIAGNOSTIC WIRE .035 260cm J wire (451166) opened to sterile field. 7:46:41 DIAGNOSTIC Multipack 5Fr catheter set (PU0011) opened to sterile field. 7:46:42 SHEATH 5FR Elim (CKB016) opened to sterile field. 7:50:42 --------ALL STOP TIME OUT------ 7:50:42 Final Timeout: patient, procedure, and site verified with staff and physician. All members of the team are in agreement. 7:50:43 Right groin site verified by team. 7:50:46 Maximum allowable Isovue 300 dose 300ml. Physician notified. (300ml for normal creatinines. For patients with creatinine of 1.7 or higher multiply weight(kg) x 5 divided by creatinine.) 7:50:49 Fire Safety Assessment: A--An alcohol-based skin anteseptic being used preoperatively., C--Open oxygen or nitrous oxide is being used., D--An ESU, laser, or fiber-optic light is being used. 7:50:51 Physical assessment completed. ASA score P 2 - A patient with mild systemic disease as per Adithya Rodriguez MD. 7:50:53 Sedation plan: IV Moderate Sedation Medication:Versed, Fentanyl 7:51:08 Fentanyl 50 mcg I.V. was administered by Nory Veloz RN; for sedation; 7:51:50 Zero performed for pressure channel P1 7:51:57 Versed 2 mg I.V. was administered by Nory Veloz RN; for sedation; 7:54:49 Baseline sample Acquired. 7:54:52 Rhythm: sinus rhythm 7:54:57 Procedure started. 7:55:02 Local anesthetic to right femoral artery with Lidocaine 2% by Adithya Rodriguez MD.INITIAL ACCESS ONLY 7:56:19 Versed 2 mg I.V. was administered by Nory Veloz RN; for sedation; 7:56:28 Fentanyl 50 mcg I.V. was administered by Nory Veloz RN; for sedation; 7:57:10 A 5 Fr sheath was inserted into the Right Femoral artery 7:57:29 A MULTIPACK JL 4.0 5Fr catheter was advanced over the wire and used for Procedure. 7:59:05 LCA angiography performed. 7:59:07 Catheter exchanged over wire. 7:59:22 A DIAGNOSTIC AR MOD 5Fr Catheter ([id number]) was advanced over the wire and used for Procedure. 8:00:35 RCA angiography performed. 8:01:03 SVG to Circ angiography performed. 8:01:52 Catheter exchanged over wire. 8:02:55 A MULTIPACK Pigtail 5 Fr catheter was advanced over the wire and used for Procedure. 8:02:58 LV gram done using CARBAJAL 8:03:00 Injector settings: Ml/sec: 10, Volume: 20, 8:03:14 LV hemodynamics recorded. 8:03:24 EF : 45 % 8:03:45 Catheter exchanged over wire. 8:04:07 SHEATH 6FR Elim (SRY492) opened to sterile field. 8:04:08 INFLATOR Merit BasixCompak (KG5311) opened to sterile field. 8:04:08 BMW 300cm Straight Lucile 2 wire (8275310) opened to sterile field. 8:04:20 TUBING High Pressure Extension Tubing (Michael) ([id number]) opened to sterile field. 8:04:59 GUIDE 6FR EBU 3.5 catheter ([id number]) opened to sterile field. 8:05:10 Sheath upsized to a 6 Fr Short. 8:05:27 Heparin Bolus 7000 units I.V. was administered by Nory Veloz RN; for anticoagulation; verified with Dr. Rodriguez 8:06:12 6 Fr EBU 3.5 guide catheter was inserted over the wire 8:07:57 BMW 300 wire advanced. 8:08:08 Wire advanced across lesion. 8:10:15 Inflate balloon Inflation number: 1 A EMERGE OTW 3.0 x 20 balloon ([id number]) was prepped and advanced across the Prox CX, then inflated to 11 ORION for 0:10 (min:sec). 8:11:20 Balloon removed over the wire. 8:11:20 Wire removed. 8:11:21 Guide catheter removed. 8:11:28 EXOSEAL 5Fr (EX500) opened to sterile field. 8:12:12 Sheath removed intact; hemostasis achieved with Exoseal to the Right Femoral artery. 8:12:56 Procedure ended.(Physican Out) 8:13:19 Fluoroscopy time 04.00 minutes. 8:13:24 Flurop Dose total: 600 8:13:24 Fluoroscopy dose: 600 mGy 8:13:32 Plavix 600 mg P.O. was administered by Nory Veloz RN; for antiplatelet therapy; 8:13:37 Contrast amount:Isovue 300 97ml. 8:13:42 Post-op/insertion site Right Femoral artery dressed using a 4 x 4 and Tegaderm. 8:13:46 Post-procedure physical assessment completed. ASA score P 2 - A patient with mild systemic disease as per Adityha Rodriguez MD. 8:13:48 Post procedure rhythm: sinus rhythm 8:13:57 Estimated blood loss: 10 ml 8:13:59 Post procedure instruction explained to patient.Patient verbalizes understanding. 8:13:59 Patient needs reinforcement of post procedure teaching. 8:15:19 Procedure and supply charges have been captured, reviewed, submitted and are correct. 8:15:22 Procedure Complication : No complications 8:15:24 Vital chart was stopped 8:15:24 See physician's report for complete and final results. 8:15:26 Report given to Pre/Post Procedure Room. 8:15:29 Patient transfered to Pre/Post Procedure Room with Bed. 8:15:30 Procedure ended. 8:15:30 Full Disclosure recording stopped 8:15:34 End room use (Document Last) Intervention Summary Intervention Notes Time ActionType Lesion and Equipment Action# Pressure Duration Attributes Used 8:10:15 Inflate Prox CX EMERGE OTW 1 11 00:10 balloon 3.0 x 20 balloon ([id number]) Device Usage Item Name Manufacture Quantity Catalog Number Hospital Part Current Mini mal Lot# / Charge Number Stock Stock Serial# Code ACIST Acist 1 24657 [id number] 611791 688874 20 Syringe Medical (25495) Systems Inc Bag Decanter Microtek 1 2001S 081341 81220 127754 5 (2001S) Medical Inc. ACIST Acist 1 93416 413956 989807 087256 5 Manifold Medical (69926) Systems Inc ACIST Hand Acist 1 88112 315513 006813 507015 5 Control Medical (59136) Systems Inc Tegaderm 4 x 3M 1 1626W 591474 062670 538258 5 4 (1626W) Medline Cath Medline 1 [id number] 979507 12004 069544 5 Pack ([id number]) DIAGNOSTIC St Te[place]o 1 238424 041359 303637 328475 30 WIRE .035 260cm J wire (095570) DIAGNOSTIC Cardinal 1 ID4217 658780 58623 530129 30 Multipack Health 5Fr catheter set (YH0253) SHEATH 5FR Terumo 1 YCC217 880208 859894 593472 5 Elim (FBR891) MULTIPACK JL Cardinal 1 162913 5 4.0 5Fr Health catheter DIAGNOSTIC Cardinal 1 [id number] 082778 642664 380126 15 AR MOD 5Fr Health Catheter (302309N) MULTIPACK Cardinal 1 516727 5 Pigtail 5 Fr Health catheter SHEATH 6FR Terumo 1 GKK851 229745 564048 479824 40 Elim (RJP088) INFLATOR Merit 1 TZ4001 851672 798696 283488 15 Merit Medical BasixCompak (EX7213) BMW 300cm Bah 1 2910719 892105 165224 619150 5 Straight Vascular Lucile 2 wire (2678702) TUBING High Merit 1 [id number] 934779 05856 899541 10 Pressure Medical Extension Tubing (Rodriguez) (HS0777D) GUIDE 6FR Medtronic 1 [id number] 658035 96318 439279 3 EBU 3.5 catheter (RJ3AED50) EMERGE OTW [place] 1 [id number] 643272 221304 409319 5 [id number] 3.0 x 20 Scientific balloon ([id number]) EXOSEAL 5Fr Cardinal 1 EX500 184857 931176 575958 10 (EX500) Health Signature Audit Anthony Stage Time Signature Unsigned Intra-Procedure 11/13/2018 Stacy Matamoros 8:19:17 AM RT(R) Signatures Monitor : Stacy Matamoros Signature : RT Date : Time : [id number] [place] [address]
[2018-11-13 06:19] VITALS: BP 125/688; Ht 172.7 cm; Wt 70.5 kg
[2018-11-13] MEDS ORDERED: LISINOPRIL2.5 MG PO (06:31)
[2018-11-13] MEDS ORDERED: LIPITOR40 MG PO (06:31)
[2018-11-13] MEDS ORDERED: COREG 3.1253.125 MG PO (06:31)
[2018-11-13 06:42] LABS: BASOPHILS 0.5 % (0-2); EOSINOPHILS 2.1 % (0-7); HEMOGLOBIN 13.8 g/dL (13.5-17.5); IMMATURE GRANULOCYTES 0.9 % (0-5); LYMPHOCYTES 18.9 % (15-50); MCH 30.5 pg (26.0-34.0); MCHC 33.7 g/dL (31.0-37.0); MCV 90.7 fL (80.0-100.0); MEAN PLATELET VOLUME 10.1 fL (7.4-10.4); MONOCYTES 10.1 % (2-11); NEUTROPHILS 67.5 % (40-80); PLATELET COUNT 228 10x3/uL (130-400); RBC 4.52 10x6/uL (4.20-6.10); RDW 13.4 % (11.5-14.5); WBC 8.8 10x3/uL (4.8-10.8)
[2018-11-13 06:54] LABS: ANION GAP 12.6 mmol/L (8-16); CALCIUM 8.5 mg/dL (8.5-10.1); CARBON DIOXIDE 24.7 mmol/L (21.0-32.0); CREATININE - SERUM 1.1 mg/dL (0.6-1.3); POTASSIUM - SERUM 4.3 mmol/L (3.5-5.1)
[2018-11-13] MEDS ORDERED: PLAVIX75 MG PO (08:22)
--- NOTE | 2018-11-13 08:35 | NUR ---
RECIEVED TO ROOM VIA STRETCHER FROM WIRE STRANDER WITH 6 FR EXOSEAL R/GROIN CDI NO BLEEDING OR HEMATOMA NOTED. AREA IS SOFT TO PALPATE WITH R/FOOT WARM PULSES PRESENT. HR 74 BP 118/73 CHEST PAIN IS DENIED
--- NOTE | 2018-11-13 08:40 | NUR ---
RIGHT GROIN DRESSING C/D/I. NO S/S OF HEMATOMA NOTED. VSS. RIGHT PEDAL PULSE PALPABLE. RESTING COMFORTABLY. FAMILY AT BEDSIDE.
--- NOTE | 2018-11-13 09:10 | NUR ---
PT RESTING COMFORTABLY. RIGHT GROIN DRESSING C/D/I. NO S/S OF HEMATOMA NOTED. VSS. FAMILY AT BEDSIDE. DENIES PAIN.
--- NOTE | 2018-11-13 09:45 | NUR ---
PT RESTING COMFORTABLY. RIGHT GROIN DRESSING C/D/I. NO S/S OF HEMATOMA NOTED. VSS. DENIES PAIN.
--- NOTE | 2018-11-13 10:20 | NUR ---
PT VOIDED 250CC OF URINE IN URINAL WITHOUT DIFFICULTY.
--- NOTE | 2018-11-13 10:45 | NUR ---
PT RESTING COMFORTABLY. VSS. DENIES PAIN. RIGHT GROIN DRESSING C/D/I. NO S/S OF HEMATOMA NOTED.
--- NOTE | 2018-11-13 11:15 | NUR ---
PT'S HEAD OF BED INC TO 30 DEGREES. TOLERATED WELL. PT SET UP WITH SANDWICH TRAY AND DRINK. VSS. RIGHT GROIN DRESSING C/D/I. NO S/S OF HEMATOMA NOTED.
--- NOTE | 2018-11-13 11:46 | NUR ---
6 FR EXOSEAL R/GROIN IS CDI WITH CHEST PAIN DENIED. PIV REMOVED WITH DRESSING APPLIED. PATIENT UP TO GET DRESSED FOR DISCHARGE HOME NO DISTRESS NOTED
--- NOTE | 2018-11-13 12:00 | NUR ---
DISCUSSED DISCHARGE INSTRUCTIONS WITH PT AND PT'S FAMILY. THEY VOICED UNDERSTANDING. RIGHT GROIN DRESSING C/D/I.
--- NOTE | 2018-11-13 12:10 | NUR ---
PT TAKEN OUT TO VEHICLE BY WHEELCHAIR. NO S/S OF DISTRESS NOTED. ALL BELONGINGS AND PAPERWORK IN HAND.
== END 2018-11-13 12:10 | disposition home or self-care (01) ==
LOC: D.CATH 05:54
PROVIDERS: ATTEND Internal Medicine Cardiovascular Disease
DX: I25.119 Atherosclerotic heart disease of native coronary artery with unspecified angina pectoris (principal); I25.719 Atherosclerosis of autologous vein coronary artery bypass graft(s) with unspecified angina pectoris; T82.855A Stenosis of coronary artery stent, initial encounter; Z01.812 Encounter for preprocedural laboratory examination

== ENCOUNTER → 2019-05-06 09:20 | Outpatient (CLI) | payer MEDICARE, BC ==
[2018-11-13 06:19] VITALS: BMI 23.6
[~2019-05-06 09:20] MED LIST changes: +LIPITOR40 MG PO
== END | disposition home or self-care (01) ==
LOC: D.HCCARDIO 09:20
PROVIDERS: ATTEND Internal Medicine Cardiovascular Disease
DX: I25.10 Atherosclerotic heart disease of native coronary artery without angina pectoris (principal)

== ENCOUNTER → 2020-05-03 13:09 | Outpatient (CLI) | payer MEDICARE, BC ==
[2018-11-13 06:19] VITALS: BMI 23.6
== END | disposition home or self-care (01) ==
LOC: D.HCCECHO 13:09
PROVIDERS: ATTEND Internal Medicine Cardiovascular Disease
DX: I34.0 Nonrheumatic mitral (valve) insufficiency (principal)